=== PATIENT | male | born 1950 | race African-American/Black ===

== ENCOUNTER 2018-05-06 07:08 | Observation (INO) | payer OTHER, MEDICARE ==
[2018-05-06] MEDS ORDERED: METHYLPREDNISOLONE INJ 125 MG/2 ML SDV IV ONE (07:25)
[2018-05-06] MEDS ORDERED: FAMOTIDINE 20 MG TABLET PO ONE (07:25)
[2018-05-06] MEDS ORDERED: DIPHENHYDRAMINE HCL 50 MG/ML VIAL IV ONE (07:25)
[2018-05-06] MEDS ORDERED: NORMAL SALINE 1000 ML 1,000 ML IV ONE (07:25)
--- NOTE | 2018-05-06 07:26 | ER Document Report ---
ED Head/Face/Scalp Injury - General Chief Complaint: Facial Swelling Stated Complaint: FACIAL SWELLING Time Seen by Provider: 05/06/18 07:24 Mode of Arrival: Ambulatory Information source: Patient Notes: Patient is a 68-year-old male who presents to the ER today for lip swelling to the bottom and top lip that he woke up with at 1:30 AM. Patient is on multiple blood pressure medications including lisinopril and hydrochlorothiazide. Patient has never had any swelling like this before. Patient denies any difficulty breathing or swelling of the tongue or throat. Patient admits that he is allergic to bee stings but has not been stung by any B recently. Patient also complains of right testicular swelling since 2 weeks ago, patient denies any pain to the testicle or penis, states that he had prostate surgery the beginning of March. Patient states that he had a catheter for a little time during this. But that was also removed last month. Patient denies any dysuria , hematuria, penile discharge. - Related Data Allergies/Adverse Reactions: acetaminophen [From Percocet] Allergy (Verified 05/06/18 07:43) bee venom protein (honey bee) Allergy (Verified 05/06/18 07:43) hydrocodone bitartrate [From Vicodin] Allergy (Verified 05/06/18 07:43) oxycodone HCl [From Percocet] Allergy (Verified 05/06/18 07:43) Past Medical History - General Information source: Patient - Social History Smoking Status: Unknown if Ever Smoked Family History: Reviewed & Not Pertinent - Past Medical History Cardiac Medical History: Reports: Hx Hypercholesterolemia, Hx Hypertension Pulmonary Medical History: Reports: Hx COPD - Immunizations Hx Diphtheria, Pertussis, Tetanus Vaccination: Yes Review of Systems - Review of Systems Constitutional: No symptoms reported EENT: See HPI Cardiovascular: No symptoms reported Respiratory: No symptoms reported Gastrointestinal: No symptoms reported Genitourinary: See HPI Male Genitourinary: No symptoms reported Musculoskeletal: No symptoms reported Skin: No symptoms reported Hematologic/Lymphatic: No symptoms reported Neurological/Psychological: No symptoms reported Physical Exam - Vital signs Vitals: Temp Pulse Resp BP Pulse Ox 97.8 F 95 18 163/73 H 97 05/06/18 07:13 05/06/18 07:13 05/06/18 07:13 05/06/18 07:13 05/06/18 07:13 - Notes Notes: PHYSICAL EXAMINATION: GENERAL: Well-appearing and in no acute distress. HEAD: Atraumatic, normocephalic. EYES: Pupils equal round and reactive to light, extraocular movements intact, sclera anicteric, conjunctiva are normal. ENT: Entirety of lower lip edematous, right half of the upper lip edematous, no edema to the tongue, airway patent, ear canals without erythema or foreign body , TMs pearly ocampo with good bony landmarks, nares patent, oropharynx clear without exudates. Moist mucous membranes. NECK: Normal range of motion, supple without lymphadenopathy LUNGS: CTAB and equal. No wheezes rales or rhonchi. HEART: Regular rate and rhythm without murmurs ABDOMEN: Soft, no tenderness. No guarding, no rebound BACK: no vertebral tenderness, normal ROM GI/: Mild edema noted to the right scrotum, nontender, no CVA tenderness EXTREMITIES: Normal range of motion, no pitting edema. No cyanosis. NEUROLOGICAL: Cranial nerves grossly intact. Normal sensory/motor exams. PSYCH: Normal mood, normal affect. SKIN: Warm, Dry, normal turgor, no rashes or lesions noted INDY Gallardo present for testicular exam Course - Re-evaluation Re-evalutation: 05/06/18 10:24 Lab work is unremarkable today except for urinalysis that reveals large leukocytes and greater than 182 white blood cells. Patient will be started on Rocephin IV here and given IV fluids, he was also given Benadryl, Solu-Medrol and Pepcid for his swelling. He does report that the lip swelling seems better , however it does not appear to be any better to me. Patient has had no swelling of the tongue or throat while being here in the ER. Patient is admitted at this time to Dr. Rodrigues, hospitalist for angioedema on lisinopril. - Vital Signs Vital signs: Temp Pulse Resp BP Pulse Ox 97.9 F 80 18 143/66 H 99 05/07/18 07:53 05/07/18 07:53 05/07/18 07:53 05/07/18 07:53 05/07/18 07:53 - Laboratory Result Diagrams: 05/06/18 07:38 05/07/18 07:49 Laboratory results interpreted by me: 05/06/18 05/06/18 05/06/18 07:38 07:38 08:08 RBC 4.17 L Hgb 11.7 L Hct 35.6 L RDW 15.4 H BUN 23 H Glucose 115 H Alkaline Phosphatase 146 H Urine Protein 30 H Urine Blood LARGE H Urine Urobilinogen 2.0 H Ur Leukocyte Esterase LARGE H Discharge - Discharge Clinical Impression: Angioedema Qualifiers: Encounter type: initial encounter Qualified Code(s): T78.3XXA - Angioneurotic edema, initial encounter Condition: Stable Disposition: ADMITTED INPATIENT Admitting Provider: Hospitalist - may Unit Admitted: Telemetry
[2018-05-06] MEDS ORDERED: FAMOTIDINE INJ/PF 20 MG/2 ML SDV IV ONE (07:51)
[2018-05-06 08:03] LABS: ABSOLUTE BASOPHILS # (AUTO) 0.1 10^3/uL (0.0-0.2); ABSOLUTE EOSINOPHILS # (AUTO) 0.3 10^3/uL (0.0-0.6); ABSOLUTE LYMPHOCYTES (AUTO) 2.4 10^3/uL (0.5-4.7); ABSOLUTE NEUT (AUTO) 6.5 10^3/uL (1.7-8.2); BASOPHILS % (AUTO) 0.7 % (0-2); EOSINOPHILS % (AUTO) 3.4 % (0-6); HEMATOCRIT 35.6 % (37.9-51.0); HEMOGLOBIN 11.7 g/dL (13.5-17.0); LYMPHOCYTES % (AUTO) 23.5 % (13-45); MEAN CORPUSCULAR HEMOGLOBIN 27.9 pg (27.0-33.4); MEAN CORPUSCULAR HGB CONC 32.7 g/dL (32.0-36.0); MEAN CORPUSCULAR VOLUME 85 fl (80-97); MONOCYTES % (AUTO) 9.3 % (3-13); PLATELET COUNT 356 10^3/uL (150-450); RED BLOOD COUNT 4.17 10^6/uL (4.35-5.55); RED CELL DISTRIBUTION WIDTH 15.4 % (11.5-14.0); SEGMENTED NEUTROPHILS % (AUTO) 63.1 % (42-78); TOTAL CELLS COUNTED % (AUTO) 100 %; WHITE BLOOD COUNT 10.2 10^3/uL (4.0-10.5)
[2018-05-06 08:14] LABS: ALANINE AMINOTRANSFERASE 27 U/L (21-72); ALBUMIN 3.7 g/dL (3.5-5.0); ALKALINE PHOSPHATASE 146 U/L (38-126); ANION GAP 11 (5-19); ASPARTATE AMINO TRANSFERASE 21 U/L (17-59); BILIRUBIN,DIRECT 0.4 mg/dL (0.0-0.4); BILIRUBIN,TOTAL 0.6 mg/dL (0.2-1.3); BLOOD UREA NITROGEN 23 mg/dL (7-20); CALCIUM 9.4 mg/dL (8.4-10.2); CARBON DIOXIDE 29 mmol/L (22-30); CHLORIDE 101 mmol/L (98-107); GLUCOSE 115 mg/dL (75-110); POTASSIUM 4.4 mmol/L (3.6-5.0); SODIUM 141.1 mmol/L (137-145)
[2018-05-06 08:46] LABS: APPEARANCE,URINE CLOUDY; BILIRUBIN,URINE NEGATIVE (NEGATIVE); COLOR,URINE YELLOW; GLUCOSE, URINE NEGATIVE (NEGATIVE); KETONES,URINE NEGATIVE (NEGATIVE); LEUKOCYTE ESTERASE,URINE LARGE (NEGATIVE); NITRITE,URINE NEGATIVE (NEGATIVE); PROTEIN,URINE 30 mg/dL (NEGATIVE); URINE SPECIFIC GRAVITY 1.017
--- NOTE | 2018-05-06 08:57 | RADIOLOGY REPORT (SQ) ---
EXAM DESCRIPTION: U/S SCROTUM W/O DOPPLER COMPLETED DATE/TIME: 05/06/2018 8:45 am REASON FOR STUDY: recent prostate sx last month, scrotal swelling COMPARISON: None. TECHNIQUE: Static and realtime sargent scale imaging of the scrotum and testes. Selected color Doppler and spectral images recorded to document blood flow. LIMITATIONS: None. FINDINGS: RIGHT: TESTICLE: Normal size. Normal echotexture. Normal blood flow. No mass. EPIDIDYMIS: Heterogeneous echotexture. No masses. HYDROCELE OR VARICOCELE: Large hydrocele measuring 4 cm. HERNIA OR EXTRA-TESTICULAR MASS: No. OTHER: No other significant finding. LEFT: TESTICLE: Normal size. Normal echotexture. Normal blood flow. No mass. EPIDIDYMIS: Normal. HYDROCELE OR VARICOCELE: No. HERNIA OR EXTRA-TESTICULAR MASS: No. OTHER: No other significant finding. IMPRESSION: No evidence for testicular mass or torsion. Large right hydrocele. TECHNICAL DOCUMENTATION: JOB ID: [id number] [employer]- All Rights Reserved Reading location - IP/workstation name: [email or web address]
[2018-05-06] MEDS ORDERED: CEFTRIAXONE INJ 1000 MG VIAL IV ONE (09:03)
[2018-05-06] MEDS ORDERED: TRAMADOL HCL 50 MG TABLET PO PRN (09:52)
[2018-05-06] MEDS ORDERED: ONDANSETRON HCL INJ/PF 4 MG/2 ML SDV IV PRN (09:53)
[2018-05-06] MEDS ORDERED: ONDANSETRON 4 MG TAB.RAPDIS PO PRN (09:53)
[2018-05-06] MEDS ORDERED: ACETAMINOPHEN 325 MG TABLET PO PRN (09:53)
[2018-05-06] MEDS ORDERED: IPRATROPIUM/ALBUTEROL 0.5-2.5 MG/3 ML AMPUL NEB PRN (09:53)
[2018-05-06] MEDS ORDERED: (PENDING PHARMACY ID) (Citalopram Hydrobromide [Celexa 40 Mg Tablet] 1 TAB) PO SCH (10:00)
[2018-05-06] MEDS ORDERED: (PENDING PHARMACY ID) (Gabapentin [Gabapentin] 300 MG) PO SCH (10:00)
[2018-05-06] MEDS: FAMOTIDINE INJ/PF 20 MG/2 ML SDV IV SCH ×2 (10:02→21:33)
[2018-05-06] MEDS: AMLODIPINE BESYLATE 10 MG TABLET PO SCH (10:09)
[2018-05-06] MEDS: GABAPENTIN 300 MG CAPSULE PO SCH ×2 (10:10→21:32)
[2018-05-06] MEDS: CITALOPRAM HYDROBROMIDE 20 MG TABLET PO SCH (10:10)
[2018-05-06] MEDS: HYDROCHLOROTHIAZIDE 25 MG TABLET PO SCH (10:18)
--- NOTE | 2018-05-06 16:22 | PDOC H&P ---
History of Present Illness Admission Date/PCP: 05/06/18 10:43 PCP: Brandan HENRIQUEZ Patient complains of: face and lip swelling History of Present Illness: BASSAM PAVON is a 68 year old male with past medical history of Hypertension Hyperlipidemia Depression GERD Chronic pain BPH status post prostatectomy 2 weeks ago Outpatient meds: Lisinopril 40 mg daily Celexa 40 mg daily Gabapentin 600 mg twice a day Flomax 0.4 mg daily Hydrochlorothiazide 25 mg daily Amlodipine 10 mg daily Protonix 40 mg daily Tramadol 50 mg 3 times a day as needed He presented to the emergency room after he woke up this morning and noticed that his lips and the right side of his face were swollen. He denies any difficulty swallowing or shortness of breath. No recent illness. He does report some dysuria. He has right-sided scrotal swelling. An ultrasound done in the emergency room showed a hydrocele with no abscess or pus collection. The patient was treated with Rocephin, steroids, Benadryl and Pepcid and referred for admission. He has been on lisinopril for the past 3 months and has had no problems in the past. The patient denies a prior history of angioedema. He denies shellfish or seafood allergy. His allergies include: Bee venom, Tylenol, oxycodone, hydrocodone. Past Medical History Cardiac Medical History: Reports: Hyperlipidema, Hypertension Pulmonary Medical History: Reports: Chronic Obstructive Pulmonary Disease (COPD) Social History Information Source: Patient Smoking Status: Former Smoker Last Time Smoked: 10/26/2002 Frequency of Alcohol Use: None Hx Recreational Drug Use: No Drugs: None Hx Prescription Drug Abuse: No - Advance Directive Resuscitation Status: Full Code Family History Family History: Hypertension Parental Family History Reviewed: Yes Children Family History Reviewed: Yes Sibling(s) Family History Reviewed.: Yes Medication/Allergy Home Medications: Amlodipine Besylate [Norvasc 10 mg Tablet] 10 mg PO DAILY 05/06/18 Citalopram Hydrobromide [Celexa 20 mg Tablet] 20 mg PO DAILY@199905/06/18 Gabapentin [Neurontin 300 mg Capsule] 300 mg PO BIDP PRN 05/06/18 Hydrochlorothiazide [Hydrodiuril 25 mg Tablet] 25 mg PO DAILY 05/06/18 Lisinopril [Prinivil 40 mg Tablet] 40 mg PO DAILY 05/06/18 Pantoprazole Sodium [Protonix] 40 mg PO DAILY@199905/06/18 Tamsulosin HCl [Flomax 0.4 mg Cap.sr] 0.4 mg PO DAILY@199905/06/18 Tramadol HCl [Ultram 50 mg Tablet] 50 mg PO TIDP PRN 05/06/18 Allergies/Adverse Reactions: acetaminophen [From Percocet] Allergy (Verified 05/06/18 07:43) bee venom protein (honey bee) Allergy (Verified 05/06/18 07:43) hydrocodone bitartrate [From Vicodin] Allergy (Verified 05/06/18 07:43) oxycodone HCl [From Percocet] Allergy (Verified 05/06/18 07:43) Review of Systems Constitutional: ABSENT: fever(s) Eyes: ABSENT: visual disturbances Ears: ABSENT: hearing changes Nose, Mouth, and Throat: ABSENT: sore throat Cardiovascular: ABSENT: chest pain, orthropnea Respiratory: ABSENT: dyspnea Gastrointestinal: ABSENT: abdominal pain, vomiting Genitourinary: PRESENT: dysuria Musculoskeletal: ABSENT: joint swelling Integumentary: ABSENT: rash Neurological: ABSENT: focal weakness Psychiatric: ABSENT: hallucinations Endocrine: ABSENT: heat intolerance Hematologic/Lymphatic: ABSENT: easy bruising Allergic/Immunologic: ABSENT: seasonal rhinorrhea Physical Exam Vital Signs: Temp Pulse Resp BP Pulse Ox 98.2 F 79 17 136/86 H 95 05/06/18 13:25 05/06/18 14:00 05/06/18 13:25 05/06/18 13:25 05/06/18 13:25 Intake & Output 05/05/18 05/06/18 05/07/18 06:59 06:59 06:59 Weight 103.7 kg General appearance: PRESENT: no acute distress Head exam: PRESENT: normocephalic Eye exam: PRESENT: PERRLA. ABSENT: scleral icterus Ear exam: PRESENT: normal external ear exam Mouth exam: PRESENT: moist, other - Lip swelling, no tongue swelling, some edema of the right cheek. Neck exam: ABSENT: tracheal deviation Respiratory exam: PRESENT: symmetrical, unlabored. ABSENT: crackles, wheezes Cardiovascular exam: PRESENT: RRR GI/Abdominal exam: PRESENT: normal bowel sounds, soft. ABSENT: tenderness Rectal exam: PRESENT: deferred Gentrourinary exam: PRESENT: scrotal swelling Extremities exam: ABSENT: pedal edema Neurological exam: PRESENT: alert, awake, oriented to person, oriented to place , oriented to time, oriented to situation Psychiatric exam: PRESENT: appropriate affect Skin exam: ABSENT: rash Results Impressions: Scrotum Ultrasound 05/06/18 07:36 IMPRESSION: No evidence for testicular mass or torsion. Large right hydrocele. Assessment & Plan - Diagnosis (1) Angioedema Qualifiers: Encounter type: initial encounter Qualified Code(s): T78.3XXA - Angioneurotic edema, initial encounter Is this a current diagnosis for this admission?: Yes Plan: Lisinopril stopped. Continue IV steroids, IV Pepcid and Benadryl. Continue to monitor closely. (2) Hypertension Is this a current diagnosis for this admission?: Yes Plan: On amlodipine and hydrochlorothiazide. Continue to monitor. (3) BPH (benign prostatic hyperplasia) Is this a current diagnosis for this admission?: Yes Plan: Status post recent prostatectomy Continue Flomax. (4) Urinary tract infection Is this a current diagnosis for this admission?: Yes Plan: Follow-up on cultures. Continue antibiotics. (5) Chronic pain Is this a current diagnosis for this admission?: Yes Plan: On tramadol and Neurontin. (6) Depression Is this a current diagnosis for this admission?: Yes Plan: Continue Celexa - Time Time Spent: 50 to 70 Minutes
[2018-05-06] MEDS ORDERED: METHYLPREDNISOLONE INJ 40 MG/1 ML SDV IV ONE (16:45)
[2018-05-06] MEDS: DIPHENHYDRAMINE HCL 25 MG CAPSULE PO SCH (17:45)
[2018-05-06] MEDS ORDERED: TAMSULOSIN HCL 0.4 MG CAP.SR.24H PO SCH (18:00)
[2018-05-06] MEDS: CIPROFLOXACIN HCL 500 MG TABLET PO SCH (21:32)
[2018-05-06] MEDS: METHYLPREDNISOLONE INJ 40 MG/1 ML SDV IV SCH (21:33)
[2018-05-07] MEDS ORDERED: LANSOPRAZOLE 30 MG TAB.RAP.DR PO SCH (06:00)
[2018-05-07] MEDS: METHYLPREDNISOLONE INJ 40 MG/1 ML SDV IV SCH (06:18)
[2018-05-07 08:16] LABS: ANION GAP 11 (5-19); BLOOD UREA NITROGEN 29 mg/dL (7-20); CALCIUM 9.1 mg/dL (8.4-10.2); CARBON DIOXIDE 25 mmol/L (22-30); CHLORIDE 105 mmol/L (98-107); CHOLESTEROL 220.32 mg/dL (0-200); GLUCOSE 138 mg/dL (75-110); PHOSPHORUS 4.1 mg/dL (2.5-4.5); POTASSIUM 4.5 mmol/L (3.6-5.0); TRIGLYCERIDES 72 mg/dL (<150)
[2018-05-07 08:27] LABS: DIRECT LDL 122 mg/dL (<100)
[2018-05-07] MEDS: HYDROCHLOROTHIAZIDE 25 MG TABLET PO SCH (10:06)
[2018-05-07] MEDS: CITALOPRAM HYDROBROMIDE 20 MG TABLET PO SCH (10:07)
[2018-05-07] MEDS: AMLODIPINE BESYLATE 10 MG TABLET PO SCH (10:07)
[2018-05-07] MEDS: DIPHENHYDRAMINE HCL 25 MG CAPSULE PO SCH (10:07)
[2018-05-07] MEDS: CIPROFLOXACIN HCL 500 MG TABLET PO SCH (10:07)
[2018-05-07] MEDS: FAMOTIDINE INJ/PF 20 MG/2 ML SDV IV SCH (10:07)
[2018-05-07] MEDS: GABAPENTIN 300 MG CAPSULE PO SCH (10:07)
[2018-05-07 12:43] VITALS: BP 135/66
--- NOTE | 2018-05-07 16:24 | PDOC DISCHARGE SUMMARY ---
General - Admit/Disc Date/PCP Admission Date/Primary Care Provider: 05/06/18 10:43 Discharge Date: 05/07/18 - Discharge Diagnosis (1) Angioedema Is this a current diagnosis for this admission?: Yes (2) Hypertension Is this a current diagnosis for this admission?: Yes (3) BPH (benign prostatic hyperplasia) Is this a current diagnosis for this admission?: Yes (4) Urinary tract infection Is this a current diagnosis for this admission?: Yes (5) Chronic pain Is this a current diagnosis for this admission?: Yes (6) Depression Is this a current diagnosis for this admission?: Yes - Additional Information Resuscitation Status: Full Code Discharge Diet: Cardiac Discharge Activity: Activity As Tolerated, Slowly Increase Activity Prescriptions: Ciprofloxacin HCl [Cipro 500 mg Tablet] 500 mg PO Q12 5 Days #11 tablet Lactobacillus Acidophilus [Bacid 250 mg Tablet] 500 mg PO BID 10 Days #21 Prednisone [Deltasone 20 mg Tablet] 40 mg PO DAILY #7 tablet Home Medications: Amlodipine Besylate [Norvasc 10 mg Tablet] 10 mg PO DAILY 05/06/18 Citalopram Hydrobromide [Celexa 20 mg Tablet] 20 mg PO DAILY@199905/06/18 Gabapentin [Neurontin 300 mg Capsule] 300 mg PO BIDP PRN 05/06/18 Hydrochlorothiazide [Hydrodiuril 25 mg Tablet] 25 mg PO DAILY 05/06/18 Pantoprazole Sodium [Protonix] 40 mg PO DAILY@199905/06/18 Tamsulosin HCl [Flomax 0.4 mg Cap.sr] 0.4 mg PO DAILY@199905/06/18 Tramadol HCl [Ultram 50 mg Tablet] 50 mg PO TIDP PRN 05/06/18 Amlodipine Besylate [Norvasc 10 mg Tablet] 10 mg PO DAILY tablet 05/07/18 Ciprofloxacin HCl [Cipro 500 mg Tablet] 500 mg PO Q12 5 Days #11 tablet Citalopram Hydrobromide [Celexa 20 mg Tablet] 40 mg PO DAILY tablet 05/07/18 Diphenhydramine HCl [Benadryl 25 mg Capsule] 25 mg PO TID 3 Days capsule Gabapentin [Neurontin 300 mg Capsule] 300 mg PO Q12 capsule 05/07/18 Hydrochlorothiazide [Hydrodiuril 25 mg Tablet] 25 mg PO DAILY tablet 05/07/18 Lactobacillus Acidophilus [Bacid 250 mg Tablet] 500 mg PO BID 10 Days #21 Prednisone [Deltasone 20 mg Tablet] 40 mg PO DAILY #7 tablet 05/07/18 Tamsulosin HCl [Flomax 0.4 mg Cap.sr] 0.4 mg PO PCSUPPER cap.sr.24h 05/07/18 Tramadol HCl [Ultram 50 mg Tablet] 50 mg PO TIDP PRN tablet 05/07/18 History of Present Illness History of Present Illness: The patient is a very pleasant 68 year old gentleman with a past medical history of Hypertension Hyperlipidemia Depression GERD Chronic pain BPH status post prostatectomy 2 weeks ago Outpatient meds: Lisinopril 40 mg daily Celexa 40 mg daily Gabapentin 600 mg twice a day Flomax 0.4 mg daily Hydrochlorothiazide 25 mg daily Amlodipine 10 mg daily Protonix 40 mg daily Tramadol 50 mg 3 times a day as needed He presented to the emergency room after he woke up this morning and noticed that his lips and the right side of his face were swollen. He denies any difficulty swallowing or shortness of breath. No recent illness. He does report some dysuria. He has right-sided scrotal swelling. An ultrasound done in the emergency room showed a hydrocele with no abscess or pus collection. The patient was treated with Rocephin, steroids, Benadryl and Pepcid and referred for admission. He had been on lisinopril for the past 3 months and has had no problems in the past. The patient denies a prior history of angioedema. He denies shellfish or seafood allergy. His allergies include: Bee venom, Tylenol, oxycodone, hydrocodone. Steroids Benadryl and Pepcid were continued. Urine cultures growing gram-negative rods identification and sensitivities pending. The patient swelling has resolved completely. He is stable for discharge home. He was given a prescription for tapering dose of prednisone and ciprofloxacin. He was asked to stop the lisinopril. The patient is to follow-up with his primary care physician in 1 week and to follow-up on the urine culture results. Hospital Course Hospital Course: As above. Physical Exam Vital Signs: Temp Pulse Resp BP Pulse Ox 98.3 F 91 18 130/64 H 94 05/07/18 11:28 05/07/18 11:28 05/07/18 11:28 05/07/18 11:28 05/07/18 11:28 Intake & Output 05/06/18 05/07/18 05/08/18 06:59 06:59 06:59 Intake Total 1275 Balance 1275 Weight 103.4 kg General appearance: PRESENT: no acute distress Mouth exam: PRESENT: other - No tongue or lip or face swelling. Respiratory exam: PRESENT: symmetrical, unlabored Neurological exam: PRESENT: alert, awake, oriented to person, oriented to place , oriented to time, oriented to situation Results Laboratory Results: 05/07/18 07:49 05/07/18 05/07/18 07:49 07:49 Sodium 141.0 Potassium 4.5 Chloride 105 Carbon Dioxide 25 Anion Gap 11 BUN 29 H Creatinine 1.08 Est GFR ( Amer) > 60 Est GFR (Non-Af Amer) > 60 Glucose 138 H Calcium 9.1 Phosphorus 4.1 Magnesium 2.1 Triglycerides 72 Cholesterol 220.32 H LDL Cholesterol Direct 122 H VLDL Cholesterol 14.0 HDL Cholesterol 58 TSH 0.15 L Impressions: Scrotum Ultrasound 05/06/18 07:36 IMPRESSION: No evidence for testicular mass or torsion. Large right hydrocele. Qualifiers - * PATIENT BEING DISCHARGED WITH ANY OF THE FOLLOWING DIAGNOSIS: No Plan Time Spent: Less than 30 Minutes
[2018-05-07] MEDS ORDERED: LACTOBACILLUS ACIDOPHILUS 250 MG TAB PO SCH (18:00)
[2018-05-07] MEDS ORDERED: FAMOTIDINE 20 MG TABLET PO SCH (22:00)
== END 2018-05-07 13:25 | disposition home or self-care (01) ==
LOC: ER 07:08 → INTOOBSV 10:43 → EH 10:43 → 5 13:15
PROVIDERS: ADMIT Internal Medicine; ATTEND Internal Medicine
DX: T78.3XXA Angioneurotic edema, initial encounter (principal); I10 Essential (primary) hypertension; N40.0 Benign prostatic hyperplasia without lower urinary tract symptoms; N39.0 Urinary tract infection, site not specified; G89.29 Other chronic pain; F32.9 Major depressive disorder, single episode, unspecified; N43.3 Hydrocele, unspecified; K21.9 Gastro-esophageal reflux disease without esophagitis; Z79.899 Other long term (current) drug therapy; Z90.79 Acquired absence of other genital organ(s); Z87.891 Personal history of nicotine dependence; Z91.030 Bee allergy status; Z88.6 Allergy status to analgesic agent
CPT/HCPCS: 99285; 96361; 96375; 96365; 36415 ×2; 87086; 83735; 84100; 84443; 85025; 87088; 80048; 80053; 81001; 87186; 83036; 80061; 76870; G0378 ×3; J1200; J2920 ×2; J2930; J0696; J3490 ×2; J7030; S0028 ×2

== ENCOUNTER 2019-03-31 18:06 | Emergency (ER) | payer OTHER, MEDICARE ==
--- NOTE | 2019-03-31 18:38 | ER Document Report ---
ED Medical Screen (RME) - General Chief Complaint: Leg Pain Stated Complaint: CRAMPING IN ARM AND LEG Time Seen by Provider: 03/31/19 18:31 Mode of Arrival: Ambulatory Information source: Patient Notes: Patient is a 68-year-old male with past medical history of hypertension and prostate cancer presenting to the emergency department with right leg cramping that started 30 minutes prior to arrival. Patient denies any history of DVTs. He denies any swelling to his leg. He does reports pain that similar to a bad cramp in the back of his calf. Patient denies any chest pain or shortness of breath. Exam: No unilateral edema noted to lower extremities. I have greeted and performed a rapid initial assessment of this patient. A comprehensive ED assessment and evaluation of the patient, analysis of test results and completion of the medical decision making process will be conducted by additional ED providers. Dictation of this chart was performed using voice recognition software; therefore, there may be some unintended grammatical errors. TRAVEL OUTSIDE OF THE [place] IN LAST 30 DAYS: No - Related Data Allergies/Adverse Reactions: acetaminophen [From Percocet] Allergy (Verified 03/31/19 18:11) bee venom protein (honey bee) Allergy (Verified 03/31/19 18:11) hydrocodone bitartrate [From Vicodin] Allergy (Verified 03/31/19 18:11) oxycodone HCl [From Percocet] Allergy (Verified 03/31/19 18:11) Past Medical History - Past Medical History Cardiac Medical History: Reports: Hx Hypercholesterolemia, Hx Hypertension Pulmonary Medical History: Reports: Hx COPD Renal/ Medical History: Denies: Hx Peritoneal Dialysis - Immunizations Hx Diphtheria, Pertussis, Tetanus Vaccination: Yes History of Influenza Vaccine for 07/2017 - 12/2017 Season: Yes Influenza Administration Date for 07/2017 - 12/2017 Season: 07/26/17 Physical Exam - Vital signs Vitals: Temp Pulse Resp BP Pulse Ox 97.9 F 88 20 189/97 H 94 03/31/19 18:13 03/31/19 18:13 03/31/19 18:13 03/31/19 18:13 03/31/19 18:13 Course - Vital Signs Vital signs: Temp Pulse Resp BP Pulse Ox 97.9 F 88 20 189/97 H 94 03/31/19 18:13 03/31/19 18:13 03/31/19 18:13 03/31/19 18:13 03/31/19 18:13
[2019-03-31 19:11] LABS: ABSOLUTE BASOPHILS # (AUTO) 0.1 10^3/uL (0.0-0.2); ABSOLUTE EOSINOPHILS # (AUTO) 0.3 10^3/uL (0.0-0.6); ABSOLUTE LYMPHOCYTES (AUTO) 2.7 10^3/uL (0.5-4.7); ABSOLUTE NEUT (AUTO) 6.5 10^3/uL (1.7-8.2); BASOPHILS % (AUTO) 1.4 % (0-2); EOSINOPHILS % (AUTO) 2.4 % (0-6); HEMATOCRIT 41.9 % (37.9-51.0); LYMPHOCYTES % (AUTO) 25.7 % (13-45); MEAN CORPUSCULAR HEMOGLOBIN 28.9 pg (27.0-33.4); MEAN CORPUSCULAR HGB CONC 33.3 g/dL (32.0-36.0); MEAN CORPUSCULAR VOLUME 87 fl (80-97); MONOCYTES % (AUTO) 9.6 % (3-13); PLATELET COUNT 208 10^3/uL (150-450); RED BLOOD COUNT 4.83 10^6/uL (4.35-5.55); RED CELL DISTRIBUTION WIDTH 14.9 % (11.5-14.0); SEGMENTED NEUTROPHILS % (AUTO) 60.9 % (42-78); TOTAL CELLS COUNTED % (AUTO) 100 %; WHITE BLOOD COUNT 10.6 10^3/uL (4.0-10.5)
[2019-03-31 19:30] LABS: ALANINE AMINOTRANSFERASE 41 U/L (21-72); ALBUMIN 4.2 g/dL (3.5-5.0); ALKALINE PHOSPHATASE 120 U/L (38-126); ANION GAP 10 (5-19); ASPARTATE AMINO TRANSFERASE 28 U/L (17-59); BILIRUBIN,DIRECT 0.3 mg/dL (0.0-0.4); BILIRUBIN,TOTAL 0.5 mg/dL (0.2-1.3); BLOOD UREA NITROGEN 15 mg/dL (7-20); CALCIUM 9.3 mg/dL (8.4-10.2); CARBON DIOXIDE 29 mmol/L (22-30); CHLORIDE 101 mmol/L (98-107); GLUCOSE 91 mg/dL (75-110); POTASSIUM 3.8 mmol/L (3.6-5.0); SODIUM 139.7 mmol/L (137-145); TOTAL PROTEIN 6.7 g/dL (6.3-8.2)
--- NOTE | 2019-03-31 21:24 | ER Document Report ---
ED General - General Chief Complaint: Leg Pain Stated Complaint: CRAMPING IN ARM AND LEG Time Seen by Provider: 03/31/19 18:31 Primary Care Provider: EMMA,MARTINEZ [Primary Care Provider] - Follow up as needed Mode of Arrival: Ambulatory Notes: Patient is a 68-year-old male that comes to the emergency department for chief complaint of cramps in his right leg and also in his right arm. He states he got into bed for a nap, woke up, when he started walking he felt sharp cramps mainly in the thigh area. He states he was able to walk this off and then started feeling a cramp in the right arm area. He states he has had this in the past but the cramps persisted and became painful so he came to the emergency department. He states he is actually a lot better now. He states he believes he is dehydrated. He denies focal numbness or weakness, headache, chest pain, shortness of breath, fever/chills. Denies nausea or vomiting. He denies any other complaints. Past medical history includes hypertension (on multiple medications including Lasix left parenthesis, and prostate cancer status post prostatectomy over a year ago, not on chemotherapy or radiation. Denies medical history otherwise. at bedside. TRAVEL OUTSIDE OF THE [place] IN LAST 30 DAYS: No - Related Data Allergies/Adverse Reactions: acetaminophen [From Percocet] Allergy (Verified 03/31/19 18:11) bee venom protein (honey bee) Allergy (Verified 03/31/19 18:11) hydrocodone bitartrate [From Vicodin] Allergy (Verified 03/31/19 18:11) oxycodone HCl [From Percocet] Allergy (Verified 03/31/19 18:11) Past Medical History - General Information source: Patient - Social History Smoking Status: Never Smoker Frequency of alcohol use: None Drug Abuse: None Lives with: Family Family History: Reviewed & Not Pertinent Patient has suicidal ideation: No Patient has homicidal ideation: No - Past Medical History Cardiac Medical History: Reports: Hx Hypercholesterolemia, Hx Hypertension Pulmonary Medical History: Reports: Hx COPD Renal/ Medical History: Denies: Hx Peritoneal Dialysis - Immunizations Hx Diphtheria, Pertussis, Tetanus Vaccination: Yes Hx Pneumococcal Vaccination: 02/23/17 Review of Systems - Review of Systems Constitutional: No symptoms reported EENT: No symptoms reported Cardiovascular: No symptoms reported Respiratory: No symptoms reported Gastrointestinal: No symptoms reported Genitourinary: No symptoms reported Male Genitourinary: No symptoms reported Musculoskeletal: See HPI Skin: No symptoms reported Hematologic/Lymphatic: No symptoms reported Neurological/Psychological: No symptoms reported Physical Exam - Vital signs Vitals: Temp Pulse Resp BP Pulse Ox 97.9 F 88 20 189/97 H 94 03/31/19 18:13 03/31/19 18:13 03/31/19 18:13 03/31/19 18:13 03/31/19 18:13 - Notes Notes: GENERAL: Alert, interacts well. No acute distress. HEAD: Normocephalic, atraumatic. EYES: Pupils equal, round, and reactive to light. Extraocular movements intact. ENT: Oral mucosa moist, tongue midline. Oropharynx unremarkable. Airway patent. NECK: Full range of motion. Supple. Trachea midline. LUNGS: Clear to auscultation bilaterally, no wheezes, rales, or rhonchi. No respiratory distress. HEART: Regular rate and rhythm. No murmur ABDOMEN: Soft, non-tender. Non-distended. Bowel sounds present in all 4 quadrants. GENITOURINARY: Deferred EXTREMITIES: Moves all 4 extremities spontaneously. No edema, normal radial and dorsalis pedis pulses bilaterally. No cyanosis. BACK: no cervical, thoracic, lumbar midline tenderness. No saddle anesthesia, normal distal neurovascular exam. Moves all extremities in full range of motion. NEUROLOGICAL: Alert and oriented x3. Normal speech. Cranial nerves II through XII grossly intact. PSYCH: Normal affect, normal mood. SKIN: Warm, dry, normal turgor. No rashes or lesions noted. Course - Re-evaluation Re-evalutation: Patient indicates the right thigh area for his symptoms of cramping reported. He has no weakness in the extremity, no numbness, no swelling, no erythema, no tenderness on palpation. He ambulates without difficulty. His symptoms from early have completely resolved. The same evaluation was noted for the right upper extremity. Presentation does not suggest CVA. I did review laboratory results from triage, CBC unremarkable, chemistry unremarkable, magnesium normal, CK is mildly elevated. Patient mildly hypertensive vital signs otherwise normal. I did offer IV fluids, initially patient agreed with this, afterwards he declined. He is asking to leave. I do not suspect infection, blood clot, CVA based on his presentation, therefore patient will be discharged to follow-up with primary care with return precautions which were discussed. Patient states understanding and agreement. - Vital Signs Vital signs: Temp Pulse Resp BP Pulse Ox 97.9 F 70 20 160/85 H 95 03/31/19 23:42 03/31/19 23:42 03/31/19 18:13 03/31/19 23:42 03/31/19 23:42 - Laboratory Result Diagrams: 03/31/19 18:49 03/31/19 18:49 Laboratory results interpreted by me: 03/31/19 03/31/19 03/31/19 18:18 18:49 22:06 WBC 10.6 H RDW 14.9 H Creatine Kinase 299 H Urine Blood SMALL H Discharge - Discharge Clinical Impression: Muscle cramps Leg pain Qualifiers: Laterality: right Qualified Code(s): M79.604 - Pain in right leg Condition: Stable Disposition: HOME, SELF-CARE Additional Instructions: Your muscle enzyme is elevated on your lab, we have given you IV fluids for this, your remaining work-up and examination do not show any concerning findings. You can apply heat to the area, rest the area. Follow-up with primary care. Return if you worsen including severe worsening pain, swelling, developing redness, fever, numbness or weakness on one side of your body, or any other concerning or worsening symptoms. Referrals: [facility] [Primary Care Provider] - Follow up as needed
[2019-03-31 22:49] LABS: APPEARANCE,URINE CLEAR; BILIRUBIN,URINE NEGATIVE (NEGATIVE); COLOR,URINE YELLOW; GLUCOSE, URINE NEGATIVE (NEGATIVE); KETONES,URINE NEGATIVE (NEGATIVE); LEUKOCYTE ESTERASE,URINE NEGATIVE (NEGATIVE); NITRITE,URINE NEGATIVE (NEGATIVE); PROTEIN,URINE NEGATIVE (NEGATIVE); URINE SPECIFIC GRAVITY 1.014; UROBILINOGEN,URINE NEGATIVE mg/dL (<2.0)
[2019-03-31] MEDS ORDERED: NORMAL SALINE 1000 ML 1,000 ML IV ONE (22:57)
[2019-03-31 23:50] VITALS: BP 160/85
== END 2019-03-31 23:51 | disposition home or self-care (01) ==
LOC: ER 18:06
DX: R25.2 Cramp and spasm (principal); M79.604 Pain in right leg; M79.601 Pain in right arm; E78.00 Pure hypercholesterolemia, unspecified; I10 Essential (primary) hypertension; J44.9 Chronic obstructive pulmonary disease, unspecified; Z88.6 Allergy status to analgesic agent
CPT/HCPCS: 36415; 80053; 81001; 82550; 83735; 85025; 99283

== ENCOUNTER 2019-09-02 12:53 | Observation (INO) | payer OTHER, MEDICARE ==
--- NOTE | 2019-09-02 13:12 | ER Document Report ---
ED Medical Screen (RME) - General Chief Complaint: Chest Pain Stated Complaint: CHEST PAIN Time Seen by Provider: 09/02/19 13:07 Primary Care Provider: EMMA,MARTINEZ [Primary Care Provider] - Follow up as needed Mode of Arrival: Ambulatory Information source: Patient Notes: 69-year-old male presented to ED for chest pain. He states is been going on for about a week. He he states he went to the [facility] today as a walk-in they did a EKG and sent him to the emergency room. States he does not have any history of MIs. He states he does not have any history of coronary artery disease, stents cardiac cath. He states he does have high blood pressure and cholesterol. He states he took all of his blood pressure medicines and all of his medicines he supposed to take except for the furosemide because that is on back order and he does not have it. I have greeted and performed a rapid initial assessment of this patient. A comprehensive ED assessment and evaluation of the patient, analysis of test results and completion of medical decision making process will be conducted by an additional ED providers. TRAVEL OUTSIDE OF THE [place] IN LAST 30 DAYS: No - Related Data Allergies/Adverse Reactions: acetaminophen [From Percocet] Allergy (Verified 03/31/19 18:11) bee venom protein (honey bee) Allergy (Verified 03/31/19 18:11) hydrocodone bitartrate [From Vicodin] Allergy (Verified 03/31/19 18:11) oxycodone HCl [From Percocet] Allergy (Verified 03/31/19 18:11) Past Medical History - Past Medical History Cardiac Medical History: Reports: Hx Hypercholesterolemia, Hx Hypertension Pulmonary Medical History: Reports: Hx COPD Renal/ Medical History: Denies: Hx Peritoneal Dialysis - Immunizations Hx Diphtheria, Pertussis, Tetanus Vaccination: Yes Doctor's Discharge - Discharge Referrals: [facility] [Primary [facility]] - Follow up as needed
[2019-09-02] MEDS ORDERED: ASPIRIN 81 MG TABLET, CHEWABLE PO ONE (13:15)
[2019-09-02 13:44] LABS: ABSOLUTE BASOPHILS # (AUTO) 0.1 10^3/uL (0.0-0.2); ABSOLUTE EOSINOPHILS # (AUTO) 0.3 10^3/uL (0.0-0.6); ABSOLUTE LYMPHOCYTES (AUTO) 2.1 10^3/uL (0.5-4.7); ABSOLUTE MONOCYTES (AUTO) 0.8 10^3/uL (0.1-1.4); ABSOLUTE NEUT (AUTO) 4.8 10^3/uL (1.7-8.2); BASOPHILS % (AUTO) 1.2 % (0-2); EOSINOPHILS % (AUTO) 3.4 % (0-6); HEMATOCRIT 43.7 % (37.9-51.0); HEMOGLOBIN 14.7 g/dL (13.5-17.0); LYMPHOCYTES % (AUTO) 26.1 % (13-45); MEAN CORPUSCULAR HEMOGLOBIN 29.2 pg (27.0-33.4); MEAN CORPUSCULAR HGB CONC 33.6 g/dL (32.0-36.0); MEAN CORPUSCULAR VOLUME 87 fl (80-97); MONOCYTES % (AUTO) 9.9 % (3-13); PLATELET COUNT 208 10^3/uL (150-450); RED BLOOD COUNT 5.03 10^6/uL (4.35-5.55); RED CELL DISTRIBUTION WIDTH 15.1 % (11.5-14.0); SEGMENTED NEUTROPHILS % (AUTO) 59.4 % (42-78); TOTAL CELLS COUNTED % (AUTO) 100 %; WHITE BLOOD COUNT 8.1 10^3/uL (4.0-10.5)
[2019-09-02 14:00] LABS: ALBUMIN 4.1 g/dL (3.5-5.0); ALKALINE PHOSPHATASE 106 U/L (38-126); ANION GAP 7 (5-19); ASPARTATE AMINO TRANSFERASE 27 U/L (17-59); BILIRUBIN,DIRECT 0.2 mg/dL (0.0-0.4); BILIRUBIN,TOTAL 0.7 mg/dL (0.2-1.3); BLOOD UREA NITROGEN 17 mg/dL (7-20); CALCIUM 9.5 mg/dL (8.4-10.2); CARBON DIOXIDE 30 mmol/L (22-30); CHLORIDE 104 mmol/L (98-107); GLUCOSE 118 mg/dL (75-110); POTASSIUM 4.1 mmol/L (3.6-5.0); TOTAL PROTEIN 7.1 g/dL (6.3-8.2)
--- NOTE | 2019-09-02 14:05 | RADIOLOGY REPORT (SQ) ---
EXAM DESCRIPTION: CHEST 2 VIEWS COMPLETED DATE/TIME: 09/02/2019 1:52 pm REASON FOR STUDY: Chest pain shortness of breath COMPARISON: 12/27/2012 EXAM PARAMETERS: NUMBER OF VIEWS: two views TECHNIQUE: Digital Frontal and Lateral radiographic views of the chest acquired. RADIATION DOSE: NA LIMITATIONS: none FINDINGS: LUNGS AND PLEURA: No opacities, masses or pneumothorax. No pleural effusion. MEDIASTINUM AND HILAR STRUCTURES: No masses or contour abnormalities. HEART AND VASCULAR STRUCTURES: Heart normal size. No evidence for failure. BONES: No acute findings. HARDWARE: None in the chest. OTHER: No other significant finding. IMPRESSION: NO ACUTE RADIOGRAPHIC FINDING IN THE CHEST. TECHNICAL DOCUMENTATION: JOB ID: [id number] [employer]- All Rights Reserved Reading location - IP/workstation name: [email or web address]
--- NOTE | 2019-09-02 17:38 | ER Document Report ---
Entered by SHAUNA VALERIO SCRIBE 09/02/19 1704 Acting as scribe for:CARROL MROALES MD ED Cardiac - General Chief Complaint: Chest Pain Stated Complaint: CHEST PAIN Time Seen by Provider: 09/02/19 13:07 Primary Care Provider: [facility] [[facility]] - Follow up as needed Mode of Arrival: Ambulatory Information source: Patient Notes: 69-year-old male who presents to the emergency department today from the [facility] because of EKG changes. Patient states he has had a chest pressure for the last week. Patient states when the pain sets in it lasts for about 15 to 20 minutes and radiates across his chest with left arm numbness. Patient has a history of hypertension but denies a history of MA or CVA. Patient states the pain seems t o come and go randomly and he cannot seem to figure out what causes it. Patient denies any shortness of breath, nausea, dizziness, cough, or congestion. TRAVEL OUTSIDE OF THE [place] IN LAST 30 DAYS: No - Related Data Allergies/Adverse Reactions: acetaminophen [From Percocet] Allergy (Verified 03/31/19 18:11) bee venom protein (honey bee) Allergy (Verified 03/31/19 18:11) hydrocodone bitartrate [From Vicodin] Allergy (Verified 03/31/19 18:11) oxycodone HCl [From Percocet] Allergy (Verified 03/31/19 18:11) Past Medical History - General Information source: Patient - Social History Smoking Status: Former Smoker Cigarette use (# per day): No Chew tobacco use (# tins/day): No Frequency of alcohol use: None Drug Abuse: None Family History: Reviewed & Not Pertinent Patient has suicidal ideation: No Patient has homicidal ideation: No - Past Medical History Cardiac Medical History: Reports: Hx Hypercholesterolemia, Hx Hypertension Pulmonary Medical History: Reports: Hx COPD - Immunizations Hx Diphtheria, Pertussis, Tetanus Vaccination: Yes Hx Pneumococcal Vaccination: 02/23/17 Review of Systems - Review of Systems Constitutional: No symptoms reported EENT: denies: Nose congestion Cardiovascular: See HPI, Chest pain. denies: Dizziness Respiratory: denies: Cough, Short of breath Gastrointestinal: denies: Nausea Genitourinary: No symptoms reported Male Genitourinary: No symptoms reported Musculoskeletal: No symptoms reported Skin: No symptoms reported Hematologic/Lymphatic: No symptoms reported Neurological/Psychological: No symptoms reported -: Yes All other systems reviewed and negative Physical Exam - Notes Notes: Physical Exam: General: Alert, appears well. HEENT: Normocephalic. Atraumatic. PERRL. Extraocular movements intact. Oropharynx clear. Neck: Supple. Non-tender. Respiratory: No respiratory distress. Clear and equal breath sounds bilaterally. Cardiovascular: Regular rate and rhythm. Abdominal: Normal Inspection. Non-tender. No distension. Normal Bowel Sounds. Back: No gross abnormalities. Extremities: Moves all four extremities. Upper extremities: Normal inspection. Normal ROM. Lower extremities: Normal inspection. No edema. Normal ROM. Neurological: Normal cognition. AAOx4. Normal speech. Psychological: Normal affect. Normal Mood. Skin: Warm. Dry. Normal color. Course - Re-evaluation Re-evalutation: 09/02/19 17:08 Patient will be admitted for further chest pain work-up abnormal EKG with chest pressure intermittently over the last week lasting 15 to 20 minutes with radiation down his left arm. - Laboratory Result Diagrams: 09/02/19 13:25 09/02/19 13:25 Laboratory results interpreted by me: 09/02/19 09/02/19 13:25 13:25 RDW 15.1 H Glucose 118 H - Diagnostic Test Radiology reviewed: Reports reviewed - EKG Interpretation by Me Additional EKG results interpreted by me: 09/02/19 17:08 Time 1258 Rate of 66, normal sinus rhythm, T wave inversions in lateral leads I, aVL, 5, 6. New from 12/27/2012. Discharge - Discharge Clinical Impression: Abnormal ECG, Chest pain Condition: Stable Disposition: ADMITTED OBSERVATION Admitting Provider: [facility] Admitted: Telemetry Referrals: [facility] [Primary [facility]] - Follow up as needed Scribe Attestation: 09/02/19 17:40 I personally performed the services described in the documentation, reviewed and edited the documentation which was dictated to the scribe in my presence, and it accurately records my words and actions. 09/02/19 1740 I personally performed the services described in the documentation, reviewed and edited the documentation which was dictated to the scribe in my presence, and it accurately records my words and actions.
[2019-09-02] MEDS ORDERED: GABAPENTIN 300 MG CAPSULE PO PRN ×2 (18:07→18:12)
[2019-09-02] MEDS ORDERED: TRAMADOL HCL 50 MG TABLET PO PRN (18:07)
[2019-09-02] MEDS ORDERED: TRAZODONE HCL 50 MG TABLET PO PRN (18:07)
[2019-09-02] MEDS ORDERED: IPRATROPIUM/ALBUTEROL 0.5-2.5 MG/3 ML AMPUL NEB PRN (18:10)
--- NOTE | 2019-09-02 18:39 | PDOC H&P ---
History of Present Illness Admission Date/PCP: 09/02/19 18:07 [facility] Patient complains of: Chest pain and left arm tingling History of Present Illness: BASSAM PAVON is a 69 year old male with a history of hypertension, degenerative joint disease, hemorrhoids, HCV status post Harvoni, PTSD, prostate cancer [diagnosed 2018] S/P prostatectomy, cervical joint disease, who presents to the hospital with complaints of left-sided and substernal chest pain asso ciated with left arm paresthesias. This has been going on for the past 1 week. Patient describes chest pain as pressure-like sensation which occurs mostly when he is laying down without worsening on exertion. No clear association with rest. Patient states he has had paresthesias in his left arm for a few years but never with chest pain. Patient denies any swelling in his legs, cough. Patient denies any history of myocardial infarction or coronary artery disease. Patient states he went to the [facility] and the nurse performed an EKG and then referred him to the hospital because it was abnormal. Patient denies having a stress test in the past. Past Medical History Cardiac Medical History: Reports: Hyperlipidema, Hypertension Pulmonary Medical History: Reports: Chronic Obstructive Pulmonary Disease (COPD) Infectious Medical History: Reports: Hepatitis C, Other Past Surgical History Past Surgical History: Reports: Other - Prostatectomy Social History Information Source: Patient Smoking Status: Former Smoker Cigarettes Packs Per Day: 50 Electronic Cigarette use?: No Frequency of Alcohol Use: None Hx Recreational Drug Use: No Drugs: None Hx Prescription Drug Abuse: No Family History Family History: Reviewed & Not Pertinent, Hypertension Parental Family History Reviewed: Yes Children Family History Reviewed: NA Sibling(s) Family History Reviewed.: NA Medication/Allergy Home Medications: Amlodipine Besylate [Norvasc 10 mg Tablet] 10 mg PO DAILY 09/02/19 Carboxymethylcellulose Sodium [Artificial Tears] 1 drop BTH_EYE QIDP PRN 09/02/19 Citalopram Hydrobromide [Celexa 20 mg Tablet] 30 mg PO DAILY 09/02/19 Diclofenac Sodium 4 gm TOP QID 09/02/19 Furosemide [Lasix 20 mg Tablet] 20 mg PO DAILY 09/02/19 Gabapentin [Neurontin 300 mg Capsule] 300 mg PO BIDP PRN 09/02/19 Hydrochlorothiazide [Hydrodiuril 25 mg Tablet] 25 mg PO DAILY 09/02/19 Ipratropium/Albuterol Sulfate [Combivent Inhaler] 1 puff IH Q6 09/02/19 Latanoprost/Pf [Latanoprost 0.005% Eye Drop] 1 drop BTH_EYE QHS 09/02/19 Metoprolol Tartrate [Lopressor 100 mg Tablet] 100 mg PO Q12 09/02/19 Lohn-3 Fatty Acids/Fish Oil [Fish Oil 1,000 Mg Capsule] 2 cap PO BID 09/02/19 Oxybutynin Chloride [Ditropan 5 Mg Tablet] 5 mg PO QHS 09/02/19 Pantoprazole Sodium [Protonix [address] Tablet] 40 mg PO DAILY 09/02/19 Tramadol HCl [Ultram 50 mg Tablet] 50 mg PO TIDP PRN 09/02/19 Trazodone HCl [Desyrel 50 mg Tablet] 50 mg PO HSP PRN 09/02/19 Allergies/Adverse Reactions: acetaminophen [From Percocet] Allergy (Verified 03/31/19 18:11) bee venom protein (honey bee) Allergy (Verified 03/31/19 18:11) hydrocodone bitartrate [From Vicodin] Allergy (Verified 03/31/19 18:11) oxycodone HCl [From Percocet] Allergy (Verified 03/31/19 18:11) Review of Systems Constitutional: ABSENT: chills, fever(s), night sweats Eyes: ABSENT: visual disturbances Ears: ABSENT: hearing changes Cardiovascular: PRESENT: chest pain, dyspnea on exertion - Baseline. ABSENT: edema, orthropnea, palpitations Gastrointestinal: ABSENT: abdominal pain Genitourinary: ABSENT: dysuria Musculoskeletal: PRESENT: back pain Integumentary: ABSENT: diaphoresis Neurological: PRESENT: as per HPI, paresthesias. ABSENT: confusion, focal weakness Psychiatric: ABSENT: anxiety Physical Exam Vital Signs: Intake & Output 09/01/19 09/02/19 09/03/19 06:59 06:59 06:59 Weight 109.9 kg General appearance: PRESENT: no acute distress, cooperative Head exam: PRESENT: atraumatic, normocephalic Eye exam: PRESENT: EOMI Mouth exam: PRESENT: moist, neck supple Neck exam: ABSENT: JVD, tracheal deviation Respiratory exam: PRESENT: clear to auscultation rené, symmetrical, unlabored. ABSENT: tachypnea Cardiovascular exam: PRESENT: RRR, +S1, +S2. ABSENT: tachycardia Vascular exam: ABSENT: pallor GI/Abdominal exam: PRESENT: normal bowel sounds, soft. ABSENT: rigid, tendernes s Musculoskeletal exam: PRESENT: other - Positive Spurling maneuver. Spurling maneuver clearly reproduces patient's described symptoms of chest pressure and left arm tingling. Neurological exam: PRESENT: alert, awake, oriented to person, oriented to place, oriented to time, oriented to situation Results Laboratory Results: 09/02/19 13:25 09/02/19 13:25 09/02/19 09/02/19 13:25 13:25 WBC 8.1 RBC 5.03 Hgb 14.7 Hct 43.7 MCV 87 MCH 29.2 MCHC 33.6 RDW 15.1 H Plt Count 208 Seg Neutrophils % 59.4 Sodium 140.6 Potassium 4.1 Chloride 104 Carbon Dioxide 30 Anion Gap 7 BUN 17 Creatinine 0.99 Est GFR ( Amer) > 60 Glucose 118 H Calcium 9.5 Total Bilirubin 0.7 AST 27 Alkaline Phosphatase 106 Total Protein 7.1 Albumin 4.1 Lipase 46.4 09/02/19 13:25 Troponin I < 0.012 Impressions: Chest X-Ray 09/02/19 13:13 IMPRESSION: NO ACUTE RADIOGRAPHIC FINDING IN THE CHEST. Assessment and Plan - Diagnosis (1) Atypical chest pain Is this a current diagnosis for this admission?: Yes Plan: Chest pain and left arm paresthesia most likely secondary to cervical radiculopathy. Patient endorses known history of cervical spinal disease. Spurling's maneuver clearly reproduces his symptoms of chest pain left arm paresthesia First troponin negative Given abnormal finding of new T wave inversions in his lateral leads, with his last available EKG for comparison pain in 2012, I will obtain another troponin measurement to rule out any potential acute infarction though I think this is unlikely. (2) Cervical radiculopathy Is this a current diagnosis for this admission?: Yes Plan: Positive Spurling maneuver which reproduces chest pain and paresthesia Outpatient physical therapy Pain control (3) Hypertension Is this a current diagnosis for this admission?: Yes Plan: Continue patient's antihypertensives (4) Abnormal electrocardiography Is this a current diagnosis for this admission?: Yes Plan: Plan as above - Time Time Spent with patient: 35 or more minutes Medications reviewed and adjusted accordingly: Yes Anticipated discharge: Home Within: within 24 hours
[2019-09-02] MEDS ORDERED: ENOXAPARIN SODIUM INJ 40 MG/0.4 ML DISP.SYRIN SUBCUT SCH (19:30)
[2019-09-02] MEDS ORDERED: LATANOPROST 0.005% OPH SOLN 2.5 ML OU SCH (22:00)
[2019-09-02] MEDS ORDERED: (PENDING PHARMACY ID) (Latanoprost/Pf [Latanoprost 0.005% Eye Drop] 1 DROP) BTH_EYE SCH (22:00)
[2019-09-02] MEDS ORDERED: METOPROLOL TARTRATE 100 MG TABLET PO SCH (22:00)
[2019-09-02] MEDS ORDERED: OXYBUTYNIN CHLORIDE 5 MG TABLET PO SCH (22:00)
[2019-09-03 09:18] VITALS: BP 159/65
--- NOTE | 2019-09-03 09:38 | PDOC DISCHARGE SUMMARY ---
Impression - Admit/DC Date/PCP Admission Date/Primary Care Provider: 09/02/19 18:07 [facility] Discharge Date: 09/03/19 - Discharge Diagnosis (1) Atypical chest pain Is this a current diagnosis for this admission?: Yes (2) Cervical radiculopathy Is this a current diagnosis for this admission?: Yes (3) Hypertension Is this a current diagnosis for this admission?: Yes (4) Abnormal electrocardiography Is this a current diagnosis for this admission?: Yes - Assessment Summary: Mr. Price presented to the hospital after being referred from his PCPs office for chest pain and abnormal EKG. Patient was experiencing left-sided chest pain with left arm paresthesias. This was reproducible on's Spurling's maneuver. His EKG showed T wave inversions in the lateral leads which was relatively new though the only EKG for comparison was all the way back in 2012. He was admitted for rule out of myocardial infarction. His troponins were all negative. His symptoms are likely secondary to cervical radiculopathy especially given his history of cervical spinal disease. Patient has been discharged in stable conditions are recommended to follow-up with his primary care physician to set up physical therapy which will help with his radiculopathy symptoms. - Additional Information Resuscitation Status: Full Code Discharge Diet: Regular Discharge Activity: Activity As Tolerated Referrals: [facility] [Primary Care [facility]] - Follow up as needed Home Medications: Amlodipine Besylate [Norvasc 10 mg Tablet] 10 mg PO DAILY 09/02/19 Carboxymethylcellulose Sodium [Artificial Tears] 1 drop BTH_EYE QIDP PRN 09/02/19 Citalopram Hydrobromide [Celexa 20 mg Tablet] 30 mg PO DAILY 09/02/19 Diclofenac Sodium 4 gm TOP QID 09/02/19 Furosemide [Lasix 20 mg Tablet] 20 mg PO DAILY 09/02/19 Gabapentin [Neurontin 300 mg Capsule] 300 mg PO BIDP PRN 09/02/19 Hydrochlorothiazide [Hydrodiuril 25 mg Tablet] 25 mg PO DAILY 09/02/19 Ipratropium/Albuterol Sulfate [Combivent Inhaler] 1 puff IH Q6 09/02/19 Latanoprost/Pf [Latanoprost 0.005% Eye Drop] 1 drop BTH_EYE QHS 09/02/19 Metoprolol Tartrate [Lopressor 100 mg Tablet] 100 mg PO Q12 09/02/19 York-3 Fatty Acids/Fish Oil [Fish Oil 1,000 mg Capsule] 2 cap PO BID 09/02/19 Oxybutynin Chloride [Ditropan 5 mg Tablet] 5 mg PO QHS 09/02/19 Pantoprazole Sodium [Protonix [address] Tablet] 40 mg PO DAILY 09/02/19 Tramadol HCl [Ultram 50 mg Tablet] 50 mg PO TIDP PRN 09/02/19 Trazodone HCl [Desyrel 50 mg Tablet] 50 mg PO HSP PRN 09/02/19 History of Present Illiness History of Present Illness: BASSAM PRICE is a 69 year old male with a history of hypertension, degenerative joint disease, hemorrhoids, HCV status post Harvoni, PTSD, prostate cancer [diagnosed 2018] S/P prostatectomy, cervical joint disease, who presents to the hospital with complaints of left-sided and substernal chest pain associated with left arm paresthesias. This has been going on for the past 1 week. Patient describes chest pain as pressure-like sensation which occurs mostly when he is laying down without worsening on exertion. No clear association with rest. Patient states he has had paresthesias in his left arm for a few years but never with chest pain. Patient denies any swelling in his legs, cough. Patient denies any history of myocardial infarction or coronary artery disease. Patient states he went to the [facility] and the nurse performed an EKG and then referred him to the hospital because it was abnormal. Patient denies having a stress test in the past. Physical Exam Vital Signs: Temp Pulse Resp BP Pulse Ox 97.5 F 51 L 20 150/80 H 99 09/03/19 09:05 09/03/19 09:05 09/03/19 09:05 09/03/19 09:05 09/03/19 09:05 Intake & Output 09/02/19 09/03/19 09/04/19 06:59 06:59 06:59 Intake Total 120 Output Total 670 Balance -670 120 Weight 109 kg General appearance: PRESENT: no acute distress, cooperative Head exam: PRESENT: normocephalic Eye exam: PRESENT: EOMI Mouth exam: PRESENT: neck supple Neck exam: ABSENT: JVD Respiratory exam: PRESENT: clear to auscultation rené, symmetrical, unlabored. ABSENT: rales, retraction, tachypnea Cardiovascular exam: PRESENT: +S1 GI/Abdominal exam: PRESENT: normal bowel sounds, soft. ABSENT: rebound, rigid, tenderness Rectal exam: PRESENT: deferred Extremities exam: ABSENT: pedal edema Musculoskeletal exam: PRESENT: ambulatory Neurological exam: PRESENT: alert, awake, oriented to person, oriented to place, oriented to time, oriented to situation Psychiatric exam: ABSENT: anxious Results Laboratory Results: WBC 8.1 10^3/uL (4.0-10.5) 09/02/19 13:25 RBC 5.03 10^6/uL (4.35-5.55) 09/02/19 13:25 Hgb 14.7 g/dL (13.5-17.0) 09/02/19 13:25 Hct 43.7 % (37.9-51.0) 09/02/19 13:25 MCV 87 fl (80-97) 09/02/19 13:25 MCH 29.2 pg (27.0-33.4) 09/02/19 13:25 MCHC 33.6 g/dL (32.0-36.0) 09/02/19 13:25 RDW 15.1 % (11.5-14.0) H 09/02/19 13:25 Plt Count 208 10^3/uL (150-450) 09/02/19 13:25 Lymph % (Auto) 26.1 % (13-45) 09/02/19 13:25 Lyon % (Auto) 9.9 % (3-13) 09/02/19 13:25 Eos % (Auto) 3.4 % (0-6) 09/02/19 13:25 Baso % (Auto) 1.2 % (0-2) 09/02/19 13:25 Absolute Neuts (auto) 4.8 10^3/uL (1.7-8.2) 09/02/19 13:25 Absolute Lymphs (auto) 2.1 10^3/uL (0.5-4.7) 09/02/19 13:25 Absolute Monos (auto) 0.8 10^3/uL (0.1-1.4) 09/02/19 13:25 Absolute Eos (auto) 0.3 10^3/uL (0.0-0.6) 09/02/19 13:25 Absolute Basos (auto) 0.1 10^3/uL (0.0-0.2) 09/02/19 13:25 Seg Neutrophils % 59.4 % (42-78) 09/02/19 13:25 Sodium 140.6 mmol/L (137-145) 09/02/19 13:25 Potassium 4.1 mmol/L (3.6-5.0) 09/02/19 13:25 Chloride 104 mmol/L (98-107) 09/02/19 13:25 Carbon Dioxide 30 mmol/L (22-30) 09/02/19 13:25 Anion Gap 7 (5-19) 09/02/19 13:25 BUN 17 mg/dL (7-20) 09/02/19 13:25 Creatinine 0.99 mg/dL (0.52-1.25) 09/02/19 13:25 Est GFR ( Amer) > 60 (>60) 09/02/19 13:25 Est GFR (MDRD) Non-Af > 60 (>60) 09/02/19 13:25 Glucose 118 mg/dL (75-110) H 09/02/19 13:25 Calcium 9.5 mg/dL (8.4-10.2) 09/02/19 13:25 Total Bilirubin 0.7 mg/dL (0.2-1.3) 09/02/19 13:25 Direct Bilirubin 0.2 mg/dL (0.0-0.4) 09/02/19 13:25 Neonat Total Bilirubin Not Reportable 09/02/19 13:25 Neonat Direct Bilirubin Not Reportable 09/02/19 13:25 Neonat Indirect Bili Not Reportable 09/02/19 13:25 AST 27 U/L (17-59) 09/02/19 13:25 ALT 29 U/L (<50) 09/02/19 13:25 Alkaline Phosphatase 106 U/L (38-126) 09/02/19 13:25 Troponin I < 0.012 ng/mL 09/02/19 18:23 Total Protein 7.1 g/dL (6.3-8.2) 09/02/19 13:25 Albumin 4.1 g/dL (3.5-5.0) 09/02/19 13:25 Lipase 46.4 U/L (23-300) 09/02/19 13:25 09/02/19 09/02/19 13:25 18:23 Troponin I < 0.012 < 0.012 Impressions: Chest X-Ray 09/02/19 13:13 IMPRESSION: NO ACUTE RADIOGRAPHIC FINDING IN THE CHEST. Stroke Is this a Stroke Patient?: No Acute Heart Failure - Is this a Heart Failure Patient?: No
[2019-09-03] MEDS ORDERED: FUROSEMIDE 20 MG TABLET PO SCH (10:00)
[2019-09-03] MEDS ORDERED: CITALOPRAM HYDROBROMIDE 20 MG TABLET PO SCH (10:00)
[2019-09-03] MEDS ORDERED: HYDROCHLOROTHIAZIDE 25 MG TABLET PO SCH (10:00)
[2019-09-03] MEDS ORDERED: PANTOPRAZOLE SODIUM 40 MG TABLET.DR PO SCH (10:00)
[2019-09-03] MEDS ORDERED: AMLODIPINE BESYLATE 10 MG TABLET PO SCH (10:00)
--- NOTE | 2019-09-03 21:39 | EKG REPORT ---
SEVERITY:- ABNORMAL ECG - SINUS RHYTHM PROBABLE LEFT ATRIAL ABNORMALITY ABNORMAL T, CONSIDER ISCHEMIA, ANT-LAT LEADS BORDERLINE PROLONGED QT INTERVAL : Confirmed by: Pavithra Bond 03-Sep-2019 21:38:25
== END 2019-09-03 09:30 | disposition home or self-care (01) ==
LOC: ER 12:53 → EH 18:07 → 5 21:50
PROVIDERS: ADMIT Internal Medicine; ATTEND Internal Medicine
DX: R07.89 Other chest pain (principal); M54.12 Radiculopathy, cervical region; I10 Essential (primary) hypertension; R94.31 Abnormal electrocardiogram [ECG] [EKG]; R06.09 Other forms of dyspnea; M54.9 Dorsalgia, unspecified; J44.9 Chronic obstructive pulmonary disease, unspecified; M19.90 Unspecified osteoarthritis, unspecified site; Z85.46 Personal history of malignant neoplasm of prostate; Z90.79 Acquired absence of other genital organ(s); Z86.19 Personal history of other infectious and parasitic diseases; Z87.891 Personal history of nicotine dependence; Z79.899 Other long term (current) drug therapy
CPT/HCPCS: 93005; 99285; 96372; 36415; 83690; 85025; 80053; 84484; 71046; 93010; G0378 ×3; J1650; J3490